=== PATIENT | male | born 1955 ===

== ENCOUNTER → 2017-10-17 | Day surgery (SDC) | payer MEDICARE, MEDICAID ==
[~2017-10-17] VITALS: Ht 177.8 cm; Wt 88.5 kg
[~2017-10-17] MED LIST: AMLODIPINE BESY10 MG ORAL; CARVEDILOL12.5 MG ORAL; CELEBREX400 M1 ORAL; CRESTOR10 M2 ORAL; MITIGARE0.6 MG PO; OMEGA 3 1,0001 EACH PO; OMEPRAZOLE20 M2 ORAL; ULORIC80 MG ORAL; ceFAZolin sod 1 GM in NS 55 ML IVPB ONE
[2017-10-17 13:42] VITALS: BP 118/72
== END | disposition home or self-care (01) ==
LOC: SUR 12:38
DX: N43.40 Spermatocele of epididymis, unspecified (principal); Z53.8 Procedure and treatment not carried out for other reasons